=== PATIENT | male | born 1950 | race Caucasian/White ===

== ENCOUNTER 2018-09-26 12:36 | Emergency (ER) | payer MEDICARE, BC ==
--- NOTE | 2018-09-26 13:45 | ER Document Report ---
HPI - HPI Patient complains to provider of: Finger laceration Time Seen by Provider: 09/26/18 13:22 Onset: Just prior to arrival Quality of pain: No pain Pain Level: Denies Context: Patient presents to the emergency department with laceration to his right dorsal fourth finger. Reports he was getting a glass of the senior [employer] when it fell and cut his hand. He reports it bled and bled so much that he came to the emergency department. Reports he takes an aspirin a day but denies anticoagulants. Denies pain with movement is moving hand without any problems. Patient reports tetanus is up-to-date no other complaints such as fever vomiting diarrhea. Associated Symptoms: None Exacerbated by: Denies Relieved by: Denies Similar symptoms previously: No Recently seen / treated by doctor: No Past Medical History - General Information source: Patient - Social History Smoking Status: Unknown if Ever Smoked Frequency of alcohol use: Occasional Drug Abuse: None Family History: None Patient has suicidal ideation: No Patient has homicidal ideation: No Endocrine Medical History: Reports: Hx Diabetes Mellitus Type 2 GI Medical History: Reports: Hx Diverticulitis Past Surgical History: Reports: Hx Bowel Surgery, Hx Cholecystectomy, Hx Orthopedic Surgery Vertical Provider Document - CONSTITUTIONAL Agree With Documented VS: Yes Exam Limitations: No Limitations General Appearance: WD/WN, No Apparent Distress - INFECTION CONTROL TRAVEL OUTSIDE OF THE [place] IN LAST 30 DAYS: No - HEENT HEENT: Atraumatic, Normocephalic - NECK Neck: Supple - RESPIRATORY Respiratory: No Respiratory Distress - MUSCULOSKELETAL/EXTREMETIES Musculoskeletal/Extremeties: MAEW, FROM, Non-Tender - NEURO Level of Consciousness: Awake, Alert, Appropriate Motor/Sensory: No Motor Deficit - DERM Integumentary: Warm, Dry, Laceration - 1 cm superficial laceration to 4th digit, dorsal right below PIP Course - Re-evaluation Re-evalutation: 09/26/18 13:44 Area cleaned well. No active bleeding. Steri-Strips to be applied. Patient instructed on importance of resting the finger letting his heel monitor for signs of infection. He verbalized understanding to all instructions. Dictation of this chart was performed using voice recognition software; therefore, there may be some unintended grammatical errors. - Vital Signs Vital signs: Temp Pulse Resp BP Pulse Ox 98.6 F 115 H 18 137/68 H 95 09/26/18 12:40 09/26/18 12:40 09/26/18 12:40 09/26/18 12:40 09/26/18 12:40 Discharge - Discharge Clinical Impression: Finger laceration Qualifiers: Encounter type: initial encounter Finger: ring finger Damage to nail status: without damage Foreign body presence: without foreign body Laterality: right Qualified Code(s): S61.214A - Laceration without foreign body of right ring finger without damage to nail, initial encounter Condition: Stable Disposition: HOME, SELF-CARE Instructions: Non-Sutured Laceration ([facility]), Soap Cleansing ([facility]), Care of Kashif ri-Strip Closure ([facility]) Additional Instructions: *You have been treated for finger laceration *Monitor the site for signs of infection such as increasing pain, redness, swelling, warmth, discharge *Keep the finger clean *Follow up with a primary care provider within one week for recheck *Return to ED for signs of infection, worsening condition, changes, needs Monitor your blood pressure. Your blood pressure was elevated today. This may be because you were anxious, in pain or because you need medication. It is important to follow up with your primary care provider for full evaluation. Forms: Elevated Blood Pressure Referrals: TREY CALVO MD [Primary Care Provider] - Follow up as needed
[2018-09-26 13:56] VITALS: BP 110/74
== END 2018-09-26 13:56 | disposition home or self-care (01) ==
LOC: ER 12:36
DX: S61.215A Laceration without foreign body of left ring finger without damage to nail, initial encounter (principal); W25.XXXA Contact with sharp glass, initial encounter; Y93.89 Activity, other specified; E11.9 Type 2 diabetes mellitus without complications
CPT/HCPCS: 99282